=== PATIENT | female | born 1940 | race Two or more races ===

== ENCOUNTER 2024-04-01 15:33 | Emergency (ER) | payer OTHER ==
[~2024-04-01] VITALS: Ht 162.6 cm; Wt 67.1 kg
[2024-04-01] MEDS ORDERED: SYNTHROID50 MCG PO (15:59)
[2024-04-01] MEDS ORDERED: LIDOCAINE HCL 1% 10ML VIAL ONE (16:53)
[2024-04-01] MEDS ORDERED: KETOROLAC TROMETHAMINE 60 MG VIAL IM ONE ×3 (17:44→17:48)
[2024-04-01] MEDS ORDERED: CEFTRIAXONE SODIUM 1,000 MG VIAL IM ONE (17:45)
[2024-04-01] MEDS ORDERED: CEFTRIAXONE SODIUM 1,000 MG VIAL ONE (17:45)
== END 2024-04-01 17:53 | disposition home or self-care (01) ==
LOC: ER 15:34
DX: S51.822A Laceration with foreign body of left forearm, initial encounter (principal); W22.8XXA Striking against or struck by other objects, initial encounter; Y93.89 Activity, other specified; Y92.89 Other specified places as the place of occurrence of the external cause; E03.8 Other specified hypothyroidism; Z91.041 Radiographic dye allergy status
CPT/HCPCS: 12005; 96372; 99282; J0696; J1885